=== PATIENT | male | born 1960 | race Caucasian/White ===

== ENCOUNTER 2017-07-07 11:59 | Inpatient (IN) | payer MEDICARE, OTHER ==
[~2017-07-07] VITALS: Ht 175.3 cm; Wt 88.5 kg
[2017-07-07] VITALS (31 sets, daily range): BP systolic 59–144; BP diastolic 36–90
--- NOTE | 2017-07-07 12:05 | NUR ---
PATIENT BIB RA D/T AMS, POSSIBLE DRUG OD.. PATIENT IS A/OX 1. BREATHING EVEN, SLIGHTLY LABORED. BP WNL. O2 SATURATION RUNNING LOW IN THE 80'S. NON REBREATHER APPLIED. IV INTACT ON LEFT HAND, 20 G. SAFETY AND COMFORT MEASURES IN PLACE. AWAITING MD ORDERS.
[2017-07-07] MEDS ORDERED: IV NS 0.9% 1,000 ML BAG IV ONE ×2 (12:30→14:00)
--- NOTE | 2017-07-07 12:30 | NUR ---
UNABLE TO PERFORM NIHSS, PATIENT DROWSY AND NOT FOLLOWING DIRECTIONS.
--- NOTE | 2017-07-07 13:00 | NUR ---
PATIENT TAKEN TO CT VIA STRETCHER
[2017-07-07 13:27] LABS: EOSINOPHILS # (AUTO) 0.1 /CMM (0.0-0.7); EOSINOPHILS % (AUTO) 0.6 % (0.0-6.0); HEMATOCRIT 41 % (39-51); HEMOGLOBIN 13.9 g/dL (13.5-17.5); LYMPHOCYTES # (AUTO) 1.1 /CMM (0.8-4.8); LYMPHOCYTES % (AUTO) 6.8 % (20.0-44.0); MEAN CORPUSCULAR HEMOGLOBIN 30 PG (26.0-33.0); MEAN CORPUSCULAR HGB CONC 34 g/dl (31.0-36.0); MEAN CORPUSCULAR VOLUME 90 fL (80-96); MONOCYTES # (AUTO) 1.4 /CMM (0.1-1.30); MONOCYTES % (AUTO) 8.4 % (2.0-12.0); NEUTROPHILS # (AUTO) 12.9 /CMM (1.8-8.9); NEUTROPHILS % (AUTO) 78.2 % (43.0-81.0); PLATELET COUNT (AUTO) 238 /CMM (150-450); RDW COEFFICIENT OF VARIATION 13.4 (11.5-15.0); RED BLOOD CELL COUNT(AUTO) 4.59 MIL/uL (4.5-6.0); WHITE BLOOD COUNT (AUTO) 16.5 K/uL (4.3-11.0)
[2017-07-07 13:57] LABS: CALCIUM, SERUM 8.3 mg/dL (8.5-10.1); CREATININE 5.7 mg/dL (0.6-1.3); POTASSIUM 5.8 mmol/L (3.5-5.1)
[2017-07-07] MEDS ORDERED: CEFTRIAXONE 1GM BAG (ER ONLY) 50 ML IV ONE (14:00)
[2017-07-07] MEDS ORDERED: LEVOFLOXACIN 750 MG /D5W 150ML 150 ML IV ONE ×2 (14:00→14:30)
[2017-07-07] MEDS ORDERED: ALBUTEROL FS 2.5 MG/3 ML VIAL.NEB CONTNEB ONE (14:00)
[2017-07-07 14:01] LABS: ACETAMINOPHEN 0 ug/ml (10-30); ALCOHOL, BLOOD < 3 mg/dL (0-0); SALICYLATE 3.1 mg/dL (2.8-20.0)
[2017-07-07] MEDS ORDERED: CEFTRIAXONE 1 G VIAL ONE (14:04)
[2017-07-07 14:10] LABS: BAND % (MANUAL) 2 % (0.0-5.0); LYMPHOCYTES % (MANUAL) 7 % (16-48); MONOCYTES % (MANUAL) 5 % (0-11.0); NEUTROPHILS % (MANUAL) 86 (42-76)
--- NOTE | 2017-07-07 14:28 | NUR ---
PAGED COMMERCIAL LOAN ADMINISTRATOR FOR [facility] NEPHROLOGY FOR CONSULT
[2017-07-07] MEDS ORDERED: SODIUM POLYSTYRENE SULFONATE 15 G/60 ML BOTTLE PO ONE (14:30)
[2017-07-07] MEDS ORDERED: ALBUTEROL FS 2.5 MG/3 ML VIAL.NEB ONE (14:41)
--- NOTE | 2017-07-07 14:48 | NUR ---
PER MD ORDERS, 16 FR caruso catheter inserted per sterile protocOl. Immediate output 125 ML of urine, color yellow and clear
[2017-07-07] MEDS ORDERED: SODIUM POLYSTYRENE SULFONATE 15 G/60 ML BOTTLE ONE (15:07)
[2017-07-07 15:25] LABS: APPEARANCE,URINE SL CLOUDY (CLEAR); BILIRUBIN,URINE NEGATIVE (NEGATIVE); BLOOD, URINE 3+ Ery/uL (NEGATIVE); COLOR,URINE YELLOW (YELLOW); KETONES,URINE NEGATIVE (NEGATIVE); LEUKOCYTE ESTERASE ,URINE NEGATIVE (NEGATIVE); NITRITE, URINE NEGATIVE (NEGATIVE); PH,URINE 5.5 (5.0-8.0); PROTEIN,URINE TRACE mg/dl (NEGATIVE); UGLUCOSE NEGATIVE (NEGATIVE); UROBILINOGEN,URINE 0.2 EU/dL (0.2)
[2017-07-07 15:43] LABS: CREATININE, URINE 180.7 MG/DL (30.0-125.0)
--- NOTE | 2017-07-07 16:05 | NUR ---
EKG COMPLETED AT BEDSIDE.
--- NOTE | 2017-07-07 16:10 | NUR ---
PATIENT TRANSPORTED TO ICU 257 VIA ACLS PROTOCOL. RNALBER TO PROVIDE OSMANY.
--- NOTE | 2017-07-07 16:10 | NUR ---
REPORT GIVEN TO CAM CAMPO FOR OSMANY UPON ADMISSION
[2017-07-07 16:23] LABS: BACTERIA,URINE Moderate /HPF (None Seen); SQUAMOUS EPITHELIAL CELL,UR Moderate /HPF (None Seen)
[2017-07-07 16:25] LABS: HYALINE CASTS, URINE Rare /LPF (None Seen)
--- NOTE | 2017-07-07 16:25 | NUR ---
ICU/RN: Pt received from ER via gurney on non-rebreather, O2 sat 100%, alert to self, restless, poor concentration, delayed speech, cooperative, no s/s pain or discomfort. Skin appears flushed, pink, warm to touch. Unable to assess pt history as pt is unable to fully answer questions and requires frequent orientation. Pt c/o feeling urge to pass stool s/p kayexelate administration in ER per EMR record. Pt educated on fall precautions. FC in place, draining well to gravity. SR on monitor. Dr Vallejo paged for admitting orders.
[2017-07-07 16:28] LABS: CALCIUM OXALATE CRYSTALS,UR Few /HPF (None Seen)
[2017-07-07] MEDS ORDERED: CEFTRIAXONE 1GM BAG (ER ONLY) 1 GM/50 ML PIGGYBACK IV ONE (17:00)
[2017-07-07] MEDS ORDERED: ZOLPIDEM TARTRATE 5 MG TABLET PO PRN (17:00)
[2017-07-07] MEDS ORDERED: MAG HYDROX/AL HYDROX/SIMETH 30 ML UDC PO PRN (17:00)
[2017-07-07] MEDS ORDERED: MAGNESIUM HYDROXIDE 30 ML UDC PO PRN (17:00)
[2017-07-07] MEDS ORDERED: ONDANSETRON HCL/PF 4 MG/2 ML VIAL IVP PRN (17:00)
[2017-07-07] MEDS ORDERED: Z GUARD REMEDY 2 OZ OINT TP PRN (17:00)
[2017-07-07] MEDS ORDERED: HYDROCODONE/APAP 5/325MG 1 EACH TABLET PO PRN (17:00)
--- NOTE | 2017-07-07 17:30 | NUR ---
ICU/RN: Dr Cortes at bedside. Updated on pt status. New orders noted and carried out.
[2017-07-07] MEDS: IV NS 0.9% 1,000 ML IV PRN (17:31)
[2017-07-07 17:34] LABS: ABG BASE EXCESS -9.4 mmol/L; ABG PCO2 62.9 mmHg (35.0-45.0); ABG PH 7.132 (7.350-7.450); ABG PO2 70.8 mmHg (75.0-100.0); AaDO2 120.2 mmHg; COHb 1.1 % (0.5-1.5); MetHb 0.6 % (0.0-1.5); O2Hb 91.4 % (94.0-97.0); SITE, ABG Right Brachial; VENT MODE, BG nasal cannula
--- NOTE | 2017-07-07 17:45 | NUR ---
ICU/RN: Notified Dr Cortes of ABG results with orders to place pt on BiPAP 18/5, repeat ABG after 2 hours and to call MD if pH<7.25. senior climate advisor updated.
--- NOTE | 2017-07-07 18:09 | NUR ---
ICU/RN: Dr Vallejo at bedside. Updated on ABG, Dr Cortes's orders, as well as DVT Risk score >5. Per MD, "I'll take a look at the chart."
--- NOTE | 2017-07-07 18:18 | NUR ---
PT PLACED ON BIPAP DUE TO PH 7.13, PCO2 62, PO2 70, HCO3 20, BE -9 BIPAP SETTINGS BELLOW ORDER: [id number] EPAP 5 BIPAP MACHINE PLUGGED INTO RED OUTLET WITH ALARM ON AND AUDIBLE. Addendum: 07/07/17 at 1822 by FAROOQ MAYO RT Amended: Links added.
[2017-07-07 18:36] LABS: ALBUMIN 2.9 g/dL (3.4-5.0); BILIRUBIN,DIRECT 0.2 mg/dL (0.0-0.2); BILIRUBIN,TOTAL 0.4 mg/dL (0.2-1.0); TOTAL PROTEIN, SERUM 6.6 g/dL (6.4-8.2)
--- NOTE | 2017-07-07 18:58 | NUR ---
ICU/RN: Spoke with Kalia, son. Given updates. Father wishes to be full code. Per son, father drinks occasionally, uses CPAP at night. Does not know any other medical history. Questions answered. Son to come in AM to visit pt.
--- NOTE | 2017-07-07 19:01 | NUR ---
ICU/RN: KATHE Cook rounds. In for ID consult. Updated on pt status.
--- NOTE | 2017-07-07 19:30 | NUR ---
CLOTHING MANAGER NOTES RECEIVED PT IN BED. ALERT, DROWSY AND LETHARGIC. ON BIPAP AT ORDERED SETTINGS. O2 SATING >95%. TELE READS SR AT 88 BPM. NPO AT THIS TIME. GALICIA CATH IN PLACE DRAINING WELL. IV SITES AT LH 20G AND LAC 20G, RUNNING NS AT 75 ML/HR. BILATERAL SWR FOR PATIENT SAFETY DUE TO PULLING ON BIPAP MASK. HOB ELEVATED, SIDE RAILS X3. CALL LIGHT WITHIN REACH.
--- NOTE | 2017-07-07 19:51 | NUR ---
PT RECEIVED ON BIPAP. NO DISTRESS. PT TOLERATING SETTINGS. WILL CONTINUE TO MONITOR. Addendum: 07/07/17 at 1950 by WILLIAM MCDOWELL RT Amended: Links added.
[2017-07-07] MEDS ORDERED: IV NS 0.9% 1,000 ML IV ONE (20:00)
--- NOTE | 2017-07-07 20:00 | NUR ---
DOUGH MOLDER HAND NOTES PT NOTED WITH SBP IN LOW 80s. DR HERNANDEZ PAGED AND MADE AWARE. NEW ORDERS RECEIVED FOR LABS AND 1L NS BOLUS.
[2017-07-07 20:28] LABS: ABG BASE EXCESS -9.9 mmol/L; ABG OXYGEN SATURATION 96.4 % (92.0-98.5); ABG PCO2 65.8 mmHg (35.0-45.0); ABG PO2 102.1 mmHg (75.0-100.0); AaDO2 143.9 mmHg; MetHb 0.7 % (0.0-1.5); O2Hb 94.8 % (94.0-97.0); SITE, ABG Right Radial
--- NOTE | 2017-07-07 20:32 | NUR ---
ABG DONE ON BIPAP. RN NOTIFIED WITH THE RESULT.
[2017-07-07 20:36] LABS: CREATINE KINASE MB 169.3 ng/mL (0-3.6)
[2017-07-07] MEDS ORDERED: ENOXAPARIN SODIUM 30 MG/0.3 ML DISP.SYRIN SQ SCH (21:00)
--- NOTE | 2017-07-07 21:00 | NUR ---
AMMUNITION COMPONENTS INSPECTOR NOTES DR AYALA PAGED FOR ABG RESULTS. DR BECKFORD TIRE STRIPPER. MADE AWARE OF ABG RESULTS NOT IMPROVING ON BIPAP. NEW ORDERS RECEIVED TO INTUBATE, SEDATED WITH VERSED AND LEVOPHED FOR BP SUPPORT.
[2017-07-07] MEDS ORDERED: NOREPINEPHRINE 4 MG/4 ML AMPUL IV ONE ×2 (21:05→21:06)
[2017-07-07] MEDS: NOREPINEPHRINE 8 MG in IV D5W 500 ML IV PRN (21:12)
[2017-07-07] MEDS ORDERED: IV NS 0.9% 500 ML IV ONE (21:30)
--- NOTE | 2017-07-07 21:30 | NUR ---
MUSIC HISTORIAN NOTES PT ALERT ENOUGH TO BE MADE AWARE OF NEED FOR INTUBATION AND AGREED. PT'S SON CALLED AND MADE AWARE ALSO. PT WAS INTUBATED BY DR JERNIGAN. ETT 7.5, 24 CM AT LIP. AC 16 TV 500 FIO2 50% PEEP 0.
[2017-07-07] MEDS ORDERED: MIDAZOLAM HCL 2 MG/2ML VIAL ONE ×2 (21:39→21:50)
--- NOTE | 2017-07-07 21:39 | NUR ---
@[address] BECKFORD. PT INTUBATED BY DR JERNIGAN, 7.5 ETT SECURED AT 24CM AT THE LIP. COLOR CHANGED ON CO2 DETECTOR. EQUAL CHEST RISE. PT PLACED ON 840 VENT. ALARMS SET AND AUDIBLE. AMBU BAG AT BEDSIDE. VENT PLUGGED INTO RED OUTLET. WILL CONTINUE TO MONITOR. Addendum: 07/07/17 at 2142 by WILLIAM MCDOWELL RT Amended: Links added.
[2017-07-07] MEDS: MIDAZOLAM HCL 100 MG in IV NS 0.9% 80 ML IV PRN (22:43)
--- NOTE | 2017-07-07 22:44 | NUR ---
RN:ICU: PT TO BE STARTED ON VERSED D/T TRANSAMINITIS. NOT ENOUGH VERSED STOCKED IN ICU OR ER OMNICELL TO MAKE SUGGESTED CONCENTRATION LISTED IN EMAR (VERSED 100MG/80ML OF NS). NOTIFIED BK AIR BOX TESTER REGARDING DIFFICULTY WITH MIXING MEDICATION AND SHORTAGE OF NEEDED VIALS. NURSING SUP SUGGESTED TO MAKE A GTT WITH LESS VIALS THAT STILL REMAINS 1:1. HARDWARE TECHNICIAN PHARMACY NOTIFIED TO ENSURE ACCURACY OF MIXING DRIP. SPOKE WITH CARLTON FROM PHARMACY IN ORDER TO MIX CORRECT CONCENTRATION OF VERSED 34MG/34ML 1:1 RATIO. PER PHARMACIST REMOVE ENTIRE CONTENT OF NS FROM 50ML NS BAG AND INJECT 34MG/34ML OF VERSED INTO BAG. BAG CONTAINS PURELY VERSED. MEDICATION VERIFIED WITH MANN LEVY. UNABLE TO SCAN MEDICATION THE CONCENTRATION OF THE VIAL DID NOT MATCH EMAR. VERSED GTT STARTED FOR SEDATION FOLLOWING INTUBATION PER MD ORDERS. VERSED STARTED AT 0.5MG/HR. WILL TITRATED PER PROTOCOL.
[2017-07-07] MEDS ORDERED: HEPARIN INFUSION/D5W 500 ML IV ONE (22:55)
--- NOTE | 2017-07-07 23:00 | NUR ---
PATTERN PUNCHER NOTES PT TROPONIN ELEVATED, DR HERNANDEZ PAGED AND MADE AWARE. ALSO MADE AWARE OF PT'S AGITATION WHILE ON VERSED. NEW ORDERS RECEIVED FOR HEPARIN DRIP WITH ACS PROTOCOL AND FENTANYL DRIP.
[2017-07-07] MEDS ORDERED: FENTANYL PF 100MCG/2ML AMPUL ONE ×2 (23:03→23:06)
[2017-07-07] MEDS: FENTANYL CITRATE IV 1,250 MCG in IV NS 0.9% 225 ML IV PRN (23:12)
[2017-07-07 23:19] LABS: INR 0.96 (0.87-1.13)
[2017-07-07] MEDS ORDERED: HEPARIN SODIUM, PORCINE 5000 UNITS/1 ML VIAL ONE (23:34)
[2017-07-07] MEDS: HEPARIN INFUSION/D5W 500 ML IV PRN (23:38)
[2017-07-08] VITALS (83 sets, daily range): BP systolic 85–166; BP diastolic 57–101
[2017-07-08] MEDS ORDERED: HEPARIN SODIUM, PORCINE 5000 UNITS/1 ML VIAL IV ONE
[2017-07-08 00:22] LABS: ABG BASE EXCESS -7.3 mmol/L; ABG OXYGEN SATURATION 97.1 % (92.0-98.5); ABG PCO2 53.8 mmHg (35.0-45.0); ABG PH 7.209 (7.350-7.450); ABG PO2 98.3 mmHg (75.0-100.0); AaDO2 415.6 mmHg; COHb 0.9 % (0.5-1.5); MetHb 0.3 % (0.0-1.5); O2Hb 95.9 % (94.0-97.0); PEEP,BG 5 cm H2O; SITE, ABG Left Radial; VT, ABG 500 mL
--- NOTE | 2017-07-08 00:26 | NUR ---
ABG DONE. RN NOTIFIED WITH THE RESULT.
[2017-07-08] MEDS: IV NS 0.9% 1,000 ML IV PRN ×2 (02:35→18:06)
[2017-07-08 04:38] LABS: BASOPHILS % (AUTO) 0.1 % (0.0-2.0); HEMATOCRIT 40 % (39-51); HEMOGLOBIN 13.4 g/dL (13.5-17.5); LYMPHOCYTES # (AUTO) 1.5 /CMM (0.8-4.8); LYMPHOCYTES % (AUTO) 9.8 % (20.0-44.0); MEAN CORPUSCULAR HEMOGLOBIN 30 PG (26.0-33.0); MEAN CORPUSCULAR HGB CONC 34 g/dl (31.0-36.0); MEAN CORPUSCULAR VOLUME 90 fL (80-96); MONOCYTES # (AUTO) 1.3 /CMM (0.1-1.30); MONOCYTES % (AUTO) 8.4 % (2.0-12.0); NEUTROPHILS # (AUTO) 12.8 /CMM (1.8-8.9); NEUTROPHILS % (AUTO) 81.7 % (43.0-81.0); PLATELET COUNT (AUTO) 204 /CMM (150-450); RDW COEFFICIENT OF VARIATION 14.1 (11.5-15.0); RED BLOOD CELL COUNT(AUTO) 4.44 MIL/uL (4.5-6.0); WHITE BLOOD COUNT (AUTO) 15.7 K/uL (4.3-11.0)
[2017-07-08 05:06] LABS: ALBUMIN 2.5 g/dL (3.4-5.0); BILIRUBIN,TOTAL 0.3 mg/dL (0.2-1.0); CALCIUM, SERUM 7.9 mg/dL (8.5-10.1); CREATININE 2.9 mg/dL (0.6-1.3); MAGNESIUM 2.3 mg/dL (1.8-2.4); PHOSPHORUS 4.3 mg/dL (2.5-4.9); POTASSIUM 4.8 mmol/L (3.5-5.1); TOTAL PROTEIN, SERUM 6.3 g/dL (6.4-8.2)
[2017-07-08 05:15] LABS: TROPONIN I 3.86 ng/mL (0.00-0.056)
[2017-07-08 05:22] LABS: CREATINE KINASE MB 117.6 ng/mL (0-3.6)
--- NOTE | 2017-07-08 06:00 | NUR ---
HAY STACKER OPERATOR NOTES PAGED DR HERNANDEZ REGARDING LABS: NA 146, TROP 3.860 AND PICC INSERTION. ORDER RECEIVED FOR PICC.
[2017-07-08] MEDS ORDERED: ROCURONIUM BROMIDE 50 MG/5 ML IV ONE (08:02)
[2017-07-08] MEDS ORDERED: ETOMIDATE 2 MG/ML VIAL IV ONE (08:02)
[2017-07-08] MEDS ORDERED: FEE EMEERGENCY 1 MIN EA MC ONE (08:02)
[2017-07-08] MEDS ORDERED: IV NS 0.9% 1,000 ML BAG IV SCH (09:00)
--- NOTE | 2017-07-08 09:15 | NUR ---
DR. AYALA ON THE UNIT SHOWED HIM THE NEWEST ABG LACTIC AT 7.28, HE ORDERS TO INCREASE TIDAL VOLUME TO 550. RT NOTIFIED ORDERS PLACED.
[2017-07-08 09:30] LABS: ABG BASE EXCESS -5.8 mmol/L; ABG OXYGEN SATURATION 95.9 % (92.0-98.5); ABG PCO2 44.4 mmHg (35.0-45.0); ABG PH 7.286 (7.350-7.450); ABG PO2 81.9 mmHg (75.0-100.0); AaDO2 224.7 mmHg; COHb 0.6 % (0.5-1.5); MetHb 0.2 % (0.0-1.5); O2Hb 95.1 % (94.0-97.0); SITE, ABG Right Radial; VENT MODE, BG AC 16 500 50% +5
[2017-07-08] MEDS: MIDAZOLAM HCL 100 MG in IV NS 0.9% 80 ML IV PRN (09:42)
[2017-07-08] MEDS: ASPIRIN 81 MG TAB.CHEW NG SCH (10:01)
[2017-07-08] MEDS: FENTANYL CITRATE IV 1,250 MCG in IV NS 0.9% 225 ML IV PRN (11:32)
[2017-07-08] MEDS: ALBUTEROL HALF STRENGTH 1.25 MG/3 ML VIAL.NEB NEB SCH ×5 (13:00→23:14)
[2017-07-08] MEDS: IPRATROPIUM NEB FS 0.5 MG/2.5 ML AMPUL.NEB NEB SCH ×4 (13:46→23:14)
[2017-07-08] MEDS: ACETYLCYSTEINE 10% SOLN 400 MG/4 ML VIAL NEB SCH ×3 (13:46→23:14)
--- NOTE | 2017-07-08 14:32 | NUR ---
PT HAS EPISODE OF AGITATION, THRASHING ABOUT. SLOWLY TITRATED UP THE VERSED AND FENTANYL TO TRY AND SEDATE THE PT BUT AT MAX HE REMAINED THRASHING ABOUT AND WOULD NOT FOLLOW DIRECTIONS. CHARGE NURSE AND ANOTHER NURSE AT BEDSIDE FOR ASSISTANCE IN KEEP THE PT SAFE, HE PULLED OUT THE PERIPHERAL IVs, PICC LINE WAS PROTECTED. DR. AYALA NOTIFIED AND HE CALLS BACK STATES HE LOOKS OVER THE LIVER BLOOD TESTS AND IT IS OKAY TO START DIPRIVAN. ORDERS TO DC TITRATE THE PT OFF THE FENTANYL AND VERSED AND START DIPRIVAN.
[2017-07-08] MEDS: PROPOFOL 100 ML IV PRN ×2 (14:41→22:30)
[2017-07-08] MEDS: CEFTRIAXONE 1 G in IV D5W 50 ML IV SCH (14:49)
[2017-07-08] MEDS: NOREPINEPHRINE 8 MG in IV D5W 500 ML IV PRN (14:53)
[2017-07-08] MEDS: HEPARIN INFUSION/D5W 500 ML IV PRN (14:56)
[2017-07-08] MEDS: ACETAMINOPHEN 325 MG TABLET PO PRN (17:08)
--- NOTE | 2017-07-08 18:04 | NUR ---
2LITERS BOLUS AT 200ML/H COMPLETE IVF FLUIDS CHANGED BACK TO NS AT 125ML/H.
--- NOTE | 2017-07-08 20:00 | NUR ---
HOME THEATER SPECIALIST - NOTES - PT RECEIVED IN BED, INTUBATED WIT 7.5 ETT 24 CM AT LIP, VENT SETTINGS AC 16 550 50% PEEP 5.0. PT IS SEDATED ON PROPOFOL @ 15 MCG/KG, PT IS ON BILAT SOFT WRIST RESTRAINTS. PT IS ALERT AND ABLE TO FOLLOW COMMANDS WHEN AWAKE. PT IS IN SR, WITH LEVO @ 2 MCG, BP WNL, ON HEPARIN DRIP AT 1200 UNITS/HR. PT HAS OGT CLAMPED NPO EXCEPT MEDS. F/C INTACT, ADEQUATE URINE OUTPUT. SKIN IS INTACT. PT HAS AMARILIS PICC LINE WITH NS @ 125 ML/HR
--- NOTE | 2017-07-08 21:30 | NUR ---
PT AWAKE, AGITATED COUGHING AND TRYING TO PULL OUT ETT, PROPOFOL DRIP INCREASED FOR SEDATION
--- NOTE | 2017-07-08 22:00 | NUR ---
BP WNL, LEVO OFF
[2017-07-09] VITALS (60 sets, daily range): BP systolic 103–165; BP diastolic 66–108
[2017-07-09] MEDS: PROPOFOL 100 ML IV PRN ×7 (02:29→22:57)
[2017-07-09] MEDS: IV NS 0.9% 1,000 ML IV PRN ×3 (02:29→17:46)
[2017-07-09] MEDS: ALBUTEROL HALF STRENGTH 1.25 MG/3 ML VIAL.NEB NEB SCH ×5 (03:21→23:49)
[2017-07-09] MEDS: IPRATROPIUM NEB FS 0.5 MG/2.5 ML AMPUL.NEB NEB SCH ×5 (03:21→23:49)
[2017-07-09 04:34] LABS: BASOPHILS % (AUTO) 0.1 % (0.0-2.0); EOSINOPHILS % (AUTO) 0.4 % (0.0-6.0); HEMATOCRIT 35 % (39-51); HEMOGLOBIN 11.9 g/dL (13.5-17.5); LYMPHOCYTES # (AUTO) 1.7 /CMM (0.8-4.8); LYMPHOCYTES % (AUTO) 13.6 % (20.0-44.0); MEAN CORPUSCULAR HEMOGLOBIN 30 PG (26.0-33.0); MEAN CORPUSCULAR HGB CONC 34 g/dl (31.0-36.0); MEAN CORPUSCULAR VOLUME 90 fL (80-96); MONOCYTES # (AUTO) 0.9 /CMM (0.1-1.30); MONOCYTES % (AUTO) 7.2 % (2.0-12.0); NEUTROPHILS # (AUTO) 9.7 /CMM (1.8-8.9); NEUTROPHILS % (AUTO) 78.7 % (43.0-81.0); PLATELET COUNT (AUTO) 190 /CMM (150-450); RDW COEFFICIENT OF VARIATION 13.5 (11.5-15.0); RED BLOOD CELL COUNT(AUTO) 3.94 MIL/uL (4.5-6.0); WHITE BLOOD COUNT (AUTO) 12.4 K/uL (4.3-11.0)
[2017-07-09 04:51] LABS: CREATININE 1.3 mg/dL (0.6-1.3); POTASSIUM 3.8 mmol/L (3.5-5.1)
[2017-07-09] MEDS ORDERED: NITROGLYCERIN PACKET 1 GM PACKET ONE (06:30)
[2017-07-09] MEDS ORDERED: HEPARIN SODIUM, PORCINE 5000 UNITS/1 ML VIAL ONE (06:30)
[2017-07-09] MEDS ORDERED: HEPARIN SODIUM, PORCINE 5000 UNITS/1 ML VIAL IV ONE ×2 (06:30→14:00)
[2017-07-09] MEDS ORDERED: CARVEDILOL 3.125 MG TABLET ONE (06:30)
[2017-07-09] MEDS ORDERED: HEPARIN SODIUM,PORCINE/PF 50 UNIT/5 ML DISP.SYRIN IV ONE (06:30)
[2017-07-09] MEDS: CARVEDILOL 3.125 MG TABLET NG SCH ×3 (06:32→20:15)
[2017-07-09] MEDS: NITROGLYCERIN 30 GM TUBE TP SCH ×3 (06:36→20:15)
--- NOTE | 2017-07-09 06:47 | NUR ---
HEPARIN DRIP INCREASED BY 200 UNITS TO 1400 UNITS PER HOUR AND 2500 UNIT BOLUS GIVEN PER DR US ORDER FOR PTT 36 L
--- NOTE | 2017-07-09 07:45 | NUR ---
ICU/RN - Notes Pt received sedated, orally intubated to mechanical ventilator with settings as ordered. No s/s of pain or discomfort. On tele reading SR 66. OG tube patent and intact, clamped, as pt is NPO at this time. Hernandez catheter intact draining urine to gravity. PICC line on AMARILIS patent and intact with IVF infusing well. On Heparin gtt, titrated accordingly. Safety and comfort measures in place. Will continue to monitor pt closely.
[2017-07-09] MEDS: ACETYLCYSTEINE 10% SOLN 400 MG/4 ML VIAL NEB SCH ×3 (08:23→23:49)
--- NOTE | 2017-07-09 08:35 | NUR ---
ICU/RN - Notes Coreg and Nitrol held at this time. Medication given prior at 0636 by PM nurse.
[2017-07-09] MEDS: ASPIRIN 81 MG TAB.CHEW NG SCH (08:36)
[2017-07-09 09:12] LABS: CREATINE KINASE MB 19.3 ng/mL (0-3.6)
[2017-07-09 09:15] LABS: ABG OXYGEN SATURATION 96.5 % (92.0-98.5); ABG PCO2 40.5 mmHg (35.0-45.0); ABG PH 7.389 (7.350-7.450); ABG PO2 88.4 mmHg (75.0-100.0); AaDO2 114.1 mmHg; MetHb 0.6 % (0.0-1.5); O2Hb 95.9 % (94.0-97.0); PEEP,BG 5 cm H2O; SITE, ABG Right Radial; VT, ABG 550 mL
--- NOTE | 2017-07-09 09:41 | NUR ---
ICU/RN - Sedation Vacation Diprivan gtt turned off at 0905 for sedation vacation and to assess neurological status. At this time, pt opens eyes, thrashing and kicking, attempting to reach for ETT tube, does not follow commands, does not move extremities purposefully. Dr Cortes at bedside for evaluation. Per MD, place pt back on sedation.
[2017-07-09] MEDS: HEPARIN INFUSION/D5W 500 ML IV PRN (10:39)
[2017-07-09] MEDS: CEFTRIAXONE 1 G in IV D5W 50 ML IV SCH (13:22)
--- NOTE | 2017-07-09 15:15 | NUR ---
ICU/RN - Notes Pt still agitated and restless, thrashing legs and biting down on ETT, on Diprivan @ 50 mcg/kg/min. Dr Cortes made aware with orders received to may increase rate up to 100 mcg/kg/min.
--- NOTE | 2017-07-09 17:52 | NUR ---
ICU/RN - Notes Dr Fabio Ferreira made aware that pt's PTT level consecutively subtherapeutic despite bolus and increase in Heparin gtt rate as per protocol. Per Dr, recheck PTT level now. Stat PTT ordered.
--- NOTE | 2017-07-09 18:59 | NUR ---
ICU/RN - Notes PTT 55, within therapeutic range. PTT ordered for tomorrow 07/10/17 @ 1400.
--- NOTE | 2017-07-09 20:27 | NUR ---
FRIT COATER DF MEDICATED PT WITH 1 TAB NORCO 5/325 PT WITH HX OF CHRONIC LOW BACK ON PERCOCET AT HOME. PT INTUBATED TOLERATING CURRENT SETTINGS VSS.SEDATED ON PROPOFOL AT 60MCG/MIN. NSR ON MONITOR BP OF 146/90 PT MEDICATED WITH COREG 3.125 AND 1 INCH NITRO PASTE. PT OGT CLAMPED. PLACEMENT VERIFIED VIA AUSCULATION/PCXR. NAD NOTED. VSS.
--- NOTE | 2017-07-09 20:59 | NUR ---
HEDDLE MACHINE OPERATOR DF PT RECEIVED ON HEPARIN GTT AT 1700 UNITS HOUR LAST PTT RESULTED AROUND 1800 VALUE OF 55 NO CHANGES PER ACS/AMI HEPARIN PROTOCOL. DOSE CALCULATIONS BASED ON PT,S WEIGHT OF 97 KG. NEXT PTT July @0500.
[2017-07-10] VITALS (38 sets, daily range): BP systolic 124–171; BP diastolic 75–107
[2017-07-10] MEDS: PROPOFOL 100 ML IV PRN ×8 (00:30→21:50)
[2017-07-10] MEDS: IV NS 0.9% 1,000 ML IV PRN (01:59)
[2017-07-10] MEDS: HEPARIN INFUSION/D5W 500 ML IV PRN (02:43)
[2017-07-10] MEDS: IPRATROPIUM NEB FS 0.5 MG/2.5 ML AMPUL.NEB NEB SCH ×6 (03:35→23:16)
[2017-07-10] MEDS: ALBUTEROL HALF STRENGTH 1.25 MG/3 ML VIAL.NEB NEB SCH ×6 (03:35→23:16)
[2017-07-10 05:15] LABS: BASOPHILS % (AUTO) 0.2 % (0.0-2.0); EOSINOPHILS # (AUTO) 0.1 /CMM (0.0-0.7); EOSINOPHILS % (AUTO) 0.8 % (0.0-6.0); HEMATOCRIT 36 % (39-51); LYMPHOCYTES % (AUTO) 17.2 % (20.0-44.0); MEAN CORPUSCULAR HEMOGLOBIN 30 PG (26.0-33.0); MEAN CORPUSCULAR HGB CONC 34 g/dl (31.0-36.0); MEAN CORPUSCULAR VOLUME 90 fL (80-96); MONOCYTES # (AUTO) 0.8 /CMM (0.1-1.30); MONOCYTES % (AUTO) 6.9 % (2.0-12.0); NEUTROPHILS # (AUTO) 8.7 /CMM (1.8-8.9); NEUTROPHILS % (AUTO) 74.9 % (43.0-81.0); PLATELET COUNT (AUTO) 202 /CMM (150-450); RDW COEFFICIENT OF VARIATION 14.1 (11.5-15.0); RED BLOOD CELL COUNT(AUTO) 3.96 MIL/uL (4.5-6.0); WHITE BLOOD COUNT (AUTO) 11.6 K/uL (4.3-11.0)
[2017-07-10 05:25] LABS: ALBUMIN 2.1 g/dL (3.4-5.0); BILIRUBIN,TOTAL 0.3 mg/dL (0.2-1.0); CALCIUM, SERUM 8.2 mg/dL (8.5-10.1); CREATININE 1.1 mg/dL (0.6-1.3); MAGNESIUM 2.3 mg/dL (1.8-2.4); PHOSPHORUS 2.1 mg/dL (2.5-4.9); POTASSIUM 3.5 mmol/L (3.5-5.1); TOTAL PROTEIN, SERUM 5.8 g/dL (6.4-8.2)
[2017-07-10 05:30] LABS: TROPONIN I 0.462 ng/mL (0.00-0.056)
--- NOTE | 2017-07-10 06:23 | NUR ---
MENTAL HYGIENE CONSULTANT DF MD US CARDIO AT BEDSIDE TO SEE PT. ORDERS TO STOP HEPARIN GTT. ADDITIONAL ORDERS ACKNOWLEDGED.
[2017-07-10] MEDS ORDERED: hydrALAZINE HCL 50 MG TABLET PO SCH ×2 (06:30→09:00)
[2017-07-10] MEDS ORDERED: hydrALAZINE HCL 50 MG TABLET ONE (06:34)
--- NOTE | 2017-07-10 06:38 | NUR ---
HOT BRAIDER DF PT DIPRIVAN GTT DECREASED TO 40MCG. PT SEDATED BRADYCARDIC AT 55-61BPM. HYDRALAZINE 5O MG PO GIVEN PER ORDERS. Addendum: 07/10/17 at 0647 by NORMAN ARRIAGA RN DIPRIVAN GTT PLACED TO 50MCG PT WITH FACIAL GRIMACING,BITING ETT AT 40MCG. SIMV WEAN TRIAL IN AM. HEPARIN GTT IVF D/C PER MD US
--- NOTE | 2017-07-10 07:45 | NUR ---
ICU/RN - Notes Pt received restless, kicking legs. Sedation titrated accordingly. Orally intubated to mechanical ventilator with settings as ordered. No s/s of pain. On tele reading SR 64. OG tube patent and intact, clamped, as pt is NPO at this time. Hernandez catheter intact draining urine to gravity. PICC line on AMARILIS patent and intact. Safety and comfort measures in place. Will continue to monitor pt closely.
[2017-07-10] MEDS: ACETYLCYSTEINE 10% SOLN 400 MG/4 ML VIAL NEB SCH ×3 (08:16→23:16)
[2017-07-10] MEDS: CARVEDILOL 3.125 MG TABLET NG SCH ×2 (08:22→21:53)
[2017-07-10] MEDS: ASPIRIN 81 MG TAB.CHEW NG SCH (08:23)
[2017-07-10] MEDS: HEPARIN SODIUM, PORCINE 5000 UNITS/1 ML VIAL SQ SCH ×2 (08:24→21:51)
[2017-07-10] MEDS: NITROGLYCERIN 30 GM TUBE TP SCH ×2 (08:25→21:53)
--- NOTE | 2017-07-10 12:00 | NUR ---
ICU/RN - Sedation Vacation Diprivan turned off at [address] vacation per Dr Cortes's request. At this time, pt opens eyes but unable to follow commands, unable to move all four extremities purposefully, appears in respiratory distress with tachypnea RR 30's. Per MD, abort SIMV wean trial and place pt back on sedation as pt is not ready for weaning today.
[2017-07-10] MEDS ORDERED: NEUTRA PHOS 1 POWD.PACKET NG ONE (12:30)
[2017-07-10] MEDS: hydrALAZINE HCL 50 MG TABLET PO SCH ×2 (12:44→16:28)
[2017-07-10] MEDS: CEFTRIAXONE 1 G in IV D5W 50 ML IV SCH (13:14)
[2017-07-10] MEDS: FIBERSOURCE HN 1,000 ML BOTTLE GT PRN (13:14)
[2017-07-10] MEDS: LORAZEPAM INJ 2 MG/ML VIAL IV PRN (18:04)
--- NOTE | 2017-07-10 18:05 | NUR ---
ICU/RN - Notes Pt restless and thrashing legs despite increase in Diprivan. Notified Dr Fabio Ferreira and received order for Ativan. Administered Ativan 2mg IVP as ordered PRN restlessness. Will continue to monitor pt closely.
--- NOTE | 2017-07-10 19:30 | NUR ---
SUPPLIER RELATIONSHIP DIRECTOR: RECEIVED INTUBATED PT WT VENT SETTINGS ORDERED. NO ACUTE DISTRESS. NO EVIDENCE OF DISCOMFORT. SEDATED ON DIPRIVAN DRIP AT 60MCG/KG/MIN. BILAT. SOFT WRIST RESTRAINTS IN PLACE FOR EPISODES OF TRYING TO REACH TUBINGS DESPITE BEING ON DIPRIVAN. RADIAL PULSES NOTED AND WNL WT NO NEW SKIN BREAKDOWN. SR ON MONITOR. AFEBRILE. OGT PLACEMENT VERIFIED AND TOLERATING FIBERSOURCE AT 55ML/HR WT NO RESIDUAL. AMARILIS PICC DRESSING C/D/I WT NO S/S OF COMPLICATIONS. F/C PATENT AND INTACT DRAINING YELLOW URINE TO GRAVITY. HOB AT 35 DEGREES. SAFETY PRECAUTION NOTED. WILL CONTINUE TO MONITOR.
--- NOTE | 2017-07-10 21:39 | NUR ---
PT RECEIVED INTUBATED 7.5 ETT AT 24CM AT THE LIP. TOLERATING VENT SETTINGS. SX'D FOR MOD AMT OF THICK YELLOW SECRETIONS. VENT ALARMS SET AND AUDIBLE. AMBU BAG AT BEDSIDE. VENT PLUGGED INTO RED OUTLET. Addendum: 07/10/17 at 2145 by WILLIAM MCDOWELL RT Amended: Links added.
[2017-07-11] VITALS (46 sets, daily range): BP systolic 98–153; BP diastolic 57–103
--- NOTE | 2017-07-11 00:30 | NUR ---
EMERGENCY DEPARTMENT AIDE: REMAINED SEDATED ON DIPRIVAN DRIP AT 60MCG/KG/MIN. SR ON PROCESS CONTROL OPERATOR.
[2017-07-11] MEDS: PROPOFOL 100 ML IV PRN ×8 (00:32→21:53)
[2017-07-11] MEDS: IV NS 0.9% 250 ML IV PRN (03:21)
[2017-07-11] MEDS: ALBUTEROL HALF STRENGTH 1.25 MG/3 ML VIAL.NEB NEB SCH ×6 (03:24→23:50)
[2017-07-11] MEDS: IPRATROPIUM NEB FS 0.5 MG/2.5 ML AMPUL.NEB NEB SCH ×6 (03:24→23:50)
--- NOTE | 2017-07-11 04:00 | NUR ---
DATA RECOVERY PLANNER: NOTED SB WT HR IN THE 50s. WILL DECREASE RATE OF DIPRIVAN TOLERATED.
[2017-07-11 04:46] LABS: CALCIUM, SERUM 8.4 mg/dL (8.5-10.1); CREATININE 0.9 mg/dL (0.6-1.3); PHOSPHORUS 2.5 mg/dL (2.5-4.9); POTASSIUM 3.1 mmol/L (3.5-5.1)
--- NOTE | 2017-07-11 06:20 | NUR ---
WINDSURFING INSTRUCTOR: SB ON LABOR RELATIONS DIRECTOR. CONTINUE ON DIPRIVAN AT 50MCG/KG/MIN. NO ACUTE DISTRESS, NO EVIDENCE OF DISCOMFORT. SAFETY PRECAUTION NOTED AT ALL TIMES.
--- NOTE | 2017-07-11 07:35 | NUR ---
CLASSIFICATION CLERK: pt.is sedated well with 50 mcg/kg/m, rest, no SOB, reactive by touch/pain with grimacing and weak activity, on wrists restraints, failed sedation vacation attempt on 07/10, SR/SB episodes over night 55-60, SBP over 100 below 150, O2 sat. GTF residual WNL, suctioned well, k+ 3.1, is in room, updated with above, see new orders
[2017-07-11] MEDS: ACETYLCYSTEINE 10% SOLN 400 MG/4 ML VIAL NEB SCH ×3 (07:58→23:50)
[2017-07-11] MEDS ORDERED: POTASSIUM CHLORIDE 20 MEQ POWDER PACKET NG SCH (08:00)
[2017-07-11] MEDS: NITROGLYCERIN 30 GM TUBE TP SCH ×2 (08:19→21:07)
[2017-07-11] MEDS: ASPIRIN 81 MG TAB.CHEW NG SCH (08:19)
[2017-07-11] MEDS: hydrALAZINE HCL 50 MG TABLET PO SCH ×3 (08:20→17:00)
[2017-07-11] MEDS: CARVEDILOL 3.125 MG TABLET NG SCH ×2 (08:20→21:06)
[2017-07-11] MEDS: HEPARIN SODIUM, PORCINE 5000 UNITS/1 ML VIAL SQ SCH ×2 (08:22→21:06)
--- NOTE | 2017-07-11 08:51 | NUR ---
CIRCULATION LIBRARIAN: unable to get Lasix, K+ from [facility](last order), pharmacy is working to fix
--- NOTE | 2017-07-11 09:00 | NUR ---
TOLL TRANSMISSION WORKER: updated with pt.status, labs, VS, orders, ordered: hos IV 2 bags
--- NOTE | 2017-07-11 09:40 | NUR ---
PATHOLOGY SECRETARY/TRANSCRIPTIONIST: sedation vacation initiated, pt.was off of sedation around 15 min: was able to open eyes without eyes contact, arms/legs activity+, unable to follow commands, restless with extremities activity, bitting ETT, resumed sedation, will f/u with MD visit for sedation vacation again
[2017-07-11] MEDS: FUROSEMIDE 40 MG/4 ML VIAL IV SCH ×3 (09:57→16:00)
--- NOTE | 2017-07-11 10:15 | NUR ---
ERECTING ENGINEER: is in room, notified re pt.history, current condition, sedation level, wean failed attempt, VS, I/O, labs, orders with diuresis meds, non-following prop.reaction with short sedation vacation, still pt.needs to be suction q2-3 hrs: said: continue AC mode support and sedation
--- NOTE | 2017-07-11 10:45 | NUR ---
BARREL WATERER: AGRONOMY PROFESSOR is in room, updated with pt.status, sedation, VS, orders, I/O, OGTF, meds, labs, see new orders
[2017-07-11] MEDS: Potassium Phosphate meq 11 MEQ in IV D5W 100 ML IV SCH ×2 (11:13→13:51)
[2017-07-11] MEDS: FIBERSOURCE HN 1,000 ML BOTTLE GT PRN (11:46)
--- NOTE | 2017-07-11 12:00 | NUR ---
RUBBER GOODS FINISHER: pt.was restless, tachypneic, bitting ETT, increased Diprivan gtt up to 70mcg/kg/m (max dose 100mcg/kg/m per report), now pt.is sedated well, rest, RR 16-18, SR, SBP over 100, O2 sat. 94-100%, charge nurse updated, diuresis tolerated well with Lasix.
[2017-07-11] MEDS: CEFTRIAXONE 1 G in IV D5W 50 ML IV SCH (13:32)
[2017-07-11] MEDS: ACETAMINOPHEN 325 MG TABLET PO PRN (16:07)
--- NOTE | 2017-07-11 17:23 | NUR ---
CONSULTANT RN: BP 99/57, hold Hdlz, lasix 40 mg IV x 3 doses were given, pt.is sedated well, rest, continue titrate Diprivan gtt, RR 14-18, SR, O2 sat. WNL, no NGTF residual, PM/skin care done
[2017-07-11] MEDS ORDERED: FUROSEMIDE 40 MG/4 ML VIAL IV SCH (17:30)
--- NOTE | 2017-07-11 18:09 | NUR ---
BIOPHYSICS TEACHER: pt. is sedated well, O2 sat. WNL, SR, SBP over 100 now, suctioned q1-2hrs, pt.sister called/notified re pt.current status, VS, POC, orders
--- NOTE | 2017-07-11 19:00 | NUR ---
BASE FILLER OPERATOR Notes. Received patient orally intubated on the vent on AC mode,well sedated on Propofol drip.With stong cough and gag reflex.PICC line via AMARILIS .OGT with on going feeding tolerating well.Comfort care done ,needs attended. 2129 Family at bedside ,supportive of patient,questions answered.
[2017-07-12] VITALS (48 sets, daily range): BP systolic 16–142; BP diastolic 59–94
--- NOTE | 2017-07-12 | NUR ---
Director Digital Marketing nOtes Status unchanged ,stable on Propofol drip.Continue comfort care.
[2017-07-12] MEDS: PROPOFOL 100 ML IV PRN ×6 (00:49→23:10)
--- NOTE | 2017-07-12 04:00 | NUR ---
Independent Freight Agent Notes Stable.Am, care rendered,tolerated well ,easily gets agitated when turning and moving but remains sedated.Possible weaning trials in am as tolerated.
[2017-07-12] MEDS: IPRATROPIUM NEB FS 0.5 MG/2.5 ML AMPUL.NEB NEB SCH ×6 (04:35→23:57)
[2017-07-12] MEDS: ALBUTEROL HALF STRENGTH 1.25 MG/3 ML VIAL.NEB NEB SCH ×6 (04:35→23:57)
[2017-07-12] MEDS: IV NS 0.9% 250 ML IV PRN (05:06)
[2017-07-12] MEDS: FIBERSOURCE HN 1,000 ML BOTTLE GT PRN (05:11)
--- NOTE | 2017-07-12 07:39 | NUR ---
CASE AIDE RECEIVED PATIENT FROM THE PREVIOUS SHIFT. PATIENT IS IN BED. SEDATED ON DIPRIVAN. ORALLY INTUBATED. VENT SETTINGS REVIEWED AND VERIFIED. ETT AND ORAL ROUTE SUCTIONED FOR CLEARANCE. TURNED AND REPOSITIONED FOR COMFORT AND WOUND PREVENTION.
[2017-07-12] MEDS: ACETYLCYSTEINE 10% SOLN 400 MG/4 ML VIAL NEB SCH ×3 (07:47→23:30)
[2017-07-12 08:28] LABS: CALCIUM, SERUM 9.1 mg/dL (8.5-10.1); POTASSIUM 3.2 mmol/L (3.5-5.1)
[2017-07-12] MEDS: CARVEDILOL 3.125 MG TABLET NG SCH ×2 (09:00→20:30)
[2017-07-12] MEDS: hydrALAZINE HCL 50 MG TABLET PO SCH ×3 (09:10→16:39)
[2017-07-12] MEDS: ASPIRIN 81 MG TAB.CHEW NG SCH (09:13)
[2017-07-12] MEDS: FUROSEMIDE 40 MG/4 ML VIAL IV SCH ×3 (09:13→16:30)
[2017-07-12] MEDS: HEPARIN SODIUM, PORCINE 5000 UNITS/1 ML VIAL SQ SCH ×2 (09:14→20:32)
[2017-07-12] MEDS: NITROGLYCERIN 30 GM TUBE TP SCH ×2 (09:14→20:31)
[2017-07-12] MEDS ORDERED: POTASSIUM CHLORIDE 20 MEQ POWDER PACKET NG ONE ×4 (09:30→12:30)
--- NOTE | 2017-07-12 09:35 | NUR ---
ROAD GRADER DURING 20 MIN OFF SEDATION PATIENT NOTED TO BE SEVERELY RESTLESS, KICKING BOTH LEGS WITHOUT A PURPOSE. TRYING TO PULL ON THE RESTRAINTS. TACHYPNEA AND LOW TIDAL VOLUMES ALSO NOTED. SEDATION RESTARTED FOR SAFETY.
[2017-07-12] MEDS: LORAZEPAM INJ 2 MG/ML VIAL IV PRN (10:59)
[2017-07-12] MEDS: CEFTRIAXONE 1 G in IV D5W 50 ML IV SCH (13:09)
[2017-07-12 14:33] LABS: ABG BASE EXCESS 16.4 mmol/L; ABG OXYGEN SATURATION 96.2 % (92.0-98.5); ABG PCO2 47.3 mmHg (35.0-45.0); ABG PH 7.556 (7.350-7.450); ABG PO2 78.7 mmHg (75.0-100.0); AaDO2 115.9 mmHg; COHb 0.7 % (0.5-1.5); MetHb 0.3 % (0.0-1.5); O2Hb 95.2 % (94.0-97.0); PEEP,BG 5 cm H2O; SITE, ABG Left Radial; VENT MODE, BG AC16 550 35% +5; VT, ABG 550 mL
[2017-07-12] MEDS: NYSTATIN (PYXIS) 500,000 UNIT/5 ML ORAL.SUSP PO SCH ×2 (17:20→20:30)
--- NOTE | 2017-07-12 19:52 | NUR ---
CLOUD SOFTWARE ENGINEER. INITIAL ASSESSMENT. RECEIVED THE PT REST ON THE BED. ORALLY INTUBATED. SEDATED WITH DIPRIVAN. ETT 7.5CM, LIP 24CM, AC 12, TV 500,FIO2 35%, PEEP 5, SAT 98%. NO ACUTE DISTRESS NOTED. OUTSOLE HANDLER SHOWING NSR. IV RT UPPER ARM PICC LINE. DIPRIVAN 50MCG/KG/MIN, OGT INTACT. FIBER SOURCE 55ML/H. FC PATENT. LE SOFT WRIST RESTRAINT CHECKED AND RELEASED. NO INJURY OR REDNESS NOTED.HOB ELEVATED. TURN AND REPOSITION Q2H. WILL CONTINUE TO MONITOR VITALS.
[2017-07-13] VITALS (42 sets, daily range): BP systolic 110–144; BP diastolic 60–106
[2017-07-13] MEDS: FIBERSOURCE HN 1,000 ML BOTTLE GT PRN (00:24)
[2017-07-13] MEDS: NYSTATIN (PYXIS) 500,000 UNIT/5 ML ORAL.SUSP PO SCH ×6 (00:24→20:59)
[2017-07-13] MEDS: IV NS 0.9% 250 ML IV PRN (00:25)
[2017-07-13] MEDS: PROPOFOL 100 ML IV PRN ×3 (01:32→08:28)
--- NOTE | 2017-07-13 02:59 | NUR ---
TOOLING SPECIALIST. AM CARE, ORAL CARE, BED BATH GIVEN. LINEN CHANGED, REMAINING SAME VENT SETTING TOLERATED WELL. SAT 98%. NO ACUTE DISTRESS NOTED. DRILLING FIELD PROFESSIONAL SHOWING NSR. IV RT UPPER ARM PICC LINE. DIPRIVAN 50 MCG/KG/MIN. FC PATENT. URINE DRAINING. LE SOFT WRIST RESTRAINT CHECKED AND RELEASED. NO INJURY OR REDNESS NOTED. OGT FEEDING TOLERATED WELL. TURN AND REPOSITION Q2H. WILL CONTINUE TO MONITOR VITALS.
[2017-07-13] MEDS: IPRATROPIUM NEB FS 0.5 MG/2.5 ML AMPUL.NEB NEB SCH ×6 (04:06→23:32)
[2017-07-13] MEDS: ALBUTEROL HALF STRENGTH 1.25 MG/3 ML VIAL.NEB NEB SCH ×6 (04:06→23:31)
[2017-07-13 04:32] LABS: BASOPHILS % (AUTO) 0.3 % (0.0-2.0); EOSINOPHILS # (AUTO) 0.4 /CMM (0.0-0.7); EOSINOPHILS % (AUTO) 2.8 % (0.0-6.0); HEMATOCRIT 44 % (39-51); HEMOGLOBIN 14.5 g/dL (13.5-17.5); LYMPHOCYTES # (AUTO) 2.7 /CMM (0.8-4.8); LYMPHOCYTES % (AUTO) 21.2 % (20.0-44.0); MEAN CORPUSCULAR HEMOGLOBIN 30 PG (26.0-33.0); MEAN CORPUSCULAR HGB CONC 33 g/dl (31.0-36.0); MEAN CORPUSCULAR VOLUME 89 fL (80-96); MONOCYTES # (AUTO) 0.9 /CMM (0.1-1.30); MONOCYTES % (AUTO) 7.2 % (2.0-12.0); NEUTROPHILS # (AUTO) 8.7 /CMM (1.8-8.9); NEUTROPHILS % (AUTO) 68.5 % (43.0-81.0); PLATELET COUNT (AUTO) 296 /CMM (150-450); RDW COEFFICIENT OF VARIATION 13.2 (11.5-15.0); RED BLOOD CELL COUNT(AUTO) 4.91 MIL/uL (4.5-6.0); WHITE BLOOD COUNT (AUTO) 12.8 K/uL (4.3-11.0)
[2017-07-13 04:50] LABS: ALBUMIN 2.6 g/dL (3.4-5.0); BILIRUBIN,TOTAL 0.3 mg/dL (0.2-1.0); CALCIUM, SERUM 9.6 mg/dL (8.5-10.1); CREATININE 1.1 mg/dL (0.6-1.3); MAGNESIUM 2.1 mg/dL (1.8-2.4); PHOSPHORUS 3.9 mg/dL (2.5-4.9); POTASSIUM 3.7 mmol/L (3.5-5.1)
[2017-07-13] MEDS: ACETYLCYSTEINE 10% SOLN 400 MG/4 ML VIAL NEB SCH ×3 (07:35→23:30)
[2017-07-13] MEDS: PROSOURCE / PROSTAT (PYXIS) 30 ML UDC GT SCH (08:37)
[2017-07-13] MEDS: ASPIRIN 81 MG TAB.CHEW NG SCH (08:37)
[2017-07-13] MEDS: CARVEDILOL 3.125 MG TABLET NG SCH ×2 (08:38→21:00)
[2017-07-13] MEDS: hydrALAZINE HCL 50 MG TABLET PO SCH ×3 (08:38→17:00)
[2017-07-13] MEDS: NITROGLYCERIN 30 GM TUBE TP SCH ×2 (08:38→21:05)
[2017-07-13] MEDS: ENOXAPARIN SODIUM 40 MG/0.4 ML DISP.SYRIN SQ SCH (08:39)
[2017-07-13] MEDS ORDERED: DC PROPOFOL WHEN EXTUBATED XX PRN (09:00)
--- NOTE | 2017-07-13 09:32 | NUR ---
RT PER DR STAUFFER ORDER PATIENT PLACED ON VENT WEANING TRIAL. CPAP 12, +5 PEEP. PATIENT AWAKE, RESPONDING TO VERBAL COMMANDS. NO SOB AT THIS TIME. VENT ALARMS CHECKED + AUDIBLE. AMBU BAG AT HOB Addendum: 07/13/17 at 0934 by GIANNI LOUIS RT Amended: Links added.
[2017-07-13 10:36] LABS: ABG BASE EXCESS 11.6 mmol/L; ABG OXYGEN SATURATION 96.7 % (92.0-98.5); ABG PCO2 43.7 mmHg (35.0-45.0); ABG PO2 82.6 mmHg (75.0-100.0); AaDO2 116.2 mmHg; COHb 0.7 % (0.5-1.5); MetHb 0.5 % (0.0-1.5); O2Hb 95.5 % (94.0-97.0); PEEP,BG 5 cm H2O; SITE, ABG Right Radial; VENT MODE, BG CPAP 12
--- NOTE | 2017-07-13 10:39 | NUR ---
AIRFREIGHT LOADING SUPERVISOR PATIENT EXTUBATED POST BLOOD GAS, PER EVS MANAGER RECOMMENDATION. NO DISTRESS POST EXTUBATION. FAMILY AT BEDSIDE. WILL MONITOR.
[2017-07-13] MEDS: CEFTRIAXONE 1 G in IV D5W 50 ML IV SCH (15:07)
--- NOTE | 2017-07-13 19:38 | NUR ---
PRODUCE MANAGER. INITIAL ASSESSMENT. RECEIVED THE PT REST ON THE BED, AWAKE, ALERT, FOLLOW COMMANDS. HEEL STAINER SHOWING NSR. IV RT UPPER ARM PICC LINE. SALINE LOCK. PT ON ROOM AIR. FC PATENT. URINE DRAINING. TURN AND REPOSITION PT INDEPENDENT. WILL CONTINUE TO MONITOR VITALS.
[2017-07-14] VITALS (19 sets, daily range): BP systolic 114–160; BP diastolic 64–100
[2017-07-14] MEDS: NYSTATIN (PYXIS) 500,000 UNIT/5 ML ORAL.SUSP PO SCH ×6 (00:28→21:04)
--- NOTE | 2017-07-14 03:05 | NUR ---
ELECTRICIAN OFFICE AM CARE, ORAL CARE, BED BATH GIVEN. LINEN CHANGED. PT ON ROOM AIR SAT 98%. NO ACUTE DISTRESS NOTED. FC PATENT. URINE DRAINING. FARM EQUIPMENT MECHANIC SHOWING NSR. IV RT UPPER ARM PICC LINE. SALINE LOCK. WILL CONTINUE TO MONITOR VITALS.
[2017-07-14] MEDS: IPRATROPIUM NEB FS 0.5 MG/2.5 ML AMPUL.NEB NEB SCH ×6 (03:24→23:53)
[2017-07-14] MEDS: ALBUTEROL HALF STRENGTH 1.25 MG/3 ML VIAL.NEB NEB SCH ×6 (03:24→23:53)
[2017-07-14 04:39] LABS: BASOPHILS % (AUTO) 0.1 % (0.0-2.0); EOSINOPHILS # (AUTO) 0.4 /CMM (0.0-0.7); EOSINOPHILS % (AUTO) 2.8 % (0.0-6.0); HEMATOCRIT 46 % (39-51); LYMPHOCYTES # (AUTO) 3.3 /CMM (0.8-4.8); LYMPHOCYTES % (AUTO) 24.4 % (20.0-44.0); MEAN CORPUSCULAR HEMOGLOBIN 29 PG (26.0-33.0); MEAN CORPUSCULAR HGB CONC 33 g/dl (31.0-36.0); MEAN CORPUSCULAR VOLUME 89 fL (80-96); MONOCYTES # (AUTO) 1.2 /CMM (0.1-1.30); MONOCYTES % (AUTO) 8.5 % (2.0-12.0); NEUTROPHILS # (AUTO) 8.7 /CMM (1.8-8.9); NEUTROPHILS % (AUTO) 64.2 % (43.0-81.0); PLATELET COUNT (AUTO) 306 /CMM (150-450); RDW COEFFICIENT OF VARIATION 13.3 (11.5-15.0); RED BLOOD CELL COUNT(AUTO) 5.14 MIL/uL (4.5-6.0); WHITE BLOOD COUNT (AUTO) 13.5 K/uL (4.3-11.0)
[2017-07-14 04:56] LABS: ALBUMIN 2.9 g/dL (3.4-5.0); BILIRUBIN,TOTAL 0.8 mg/dL (0.2-1.0); CALCIUM, SERUM 9.6 mg/dL (8.5-10.1); CREATININE 1.1 mg/dL (0.6-1.3); MAGNESIUM 2.1 mg/dL (1.8-2.4); PHOSPHORUS 2.6 mg/dL (2.5-4.9); POTASSIUM 3.7 mmol/L (3.5-5.1); TOTAL PROTEIN, SERUM 7.3 g/dL (6.4-8.2)
--- NOTE | 2017-07-14 06:22 | NUR ---
EXTENSION WORK DIRECTOR. PT STATE SMOKE SMELL BOTHERING HIM. PT NEED OXYGEN .OXYGEN 3L NASAL CANNULA STARTED., SAT 98%.
[2017-07-14] MEDS: ACETYLCYSTEINE 10% SOLN 400 MG/4 ML VIAL NEB SCH ×3 (07:03→23:53)
--- NOTE | 2017-07-14 07:10 | NUR ---
RN NOTES RECEIVED PATIENT AOX2-3 NOT IN ACUTE DISTRESS , DENIES SOB AND DISCOMFORT AT THIS TIME , SPO2 OF 100% VIA 2LPM NC , SR 78 ON BEDSIDE MONITOR , FC DRAINING VIA GRAVITY WITH CLEAR GREENISH URINE , AMARILIS PICC LINE PATENT AND INTACT HL , ALL NEEDS ATTENDED , BED ON LOW AND LOCKED POSITION , SIDE RAILS X2 ,CALL LIGHT WITHIN REACH , HOB @ 35 , WILL CONTINUE TO MONITOR
--- NOTE | 2017-07-14 08:00 | NUR ---
RN NOTES GALICIA CATHETER DISCONTINUED , PATIENT TOLERATED IT WELL , PATIENT AOX3 , VERBALIZING THAT THE GALICIA CATCHER IS REALLY UNCOMFORTABLE , URINAL AT BEDSIDE, WILL CONTINUE TO MONITOR
--- NOTE | 2017-07-14 08:30 | NUR ---
RN NOTES PATIENT ABLE TO URINATE , NOTED WITH 200ML URINE OUTPUT
[2017-07-14] MEDS: PROSOURCE / PROSTAT (PYXIS) 30 ML UDC GT SCH (09:01)
[2017-07-14] MEDS: hydrALAZINE HCL 50 MG TABLET PO SCH ×3 (09:23→16:10)
[2017-07-14] MEDS: ASPIRIN 81 MG TAB.CHEW NG SCH (09:24)
[2017-07-14] MEDS: ENOXAPARIN SODIUM 40 MG/0.4 ML DISP.SYRIN SQ SCH (09:24)
[2017-07-14] MEDS: CARVEDILOL 3.125 MG TABLET NG SCH ×2 (09:24→21:05)
[2017-07-14] MEDS: NITROGLYCERIN 30 GM TUBE TP SCH ×2 (09:25→21:04)
--- NOTE | 2017-07-14 10:00 | NUR ---
RN NOTES SEEN AND EVALUATED BY DR WALLACE , DISCUSSED LABS , LATEST V/S , PT ON RA SPO2 OF 100% ,AFEBRILE , GALICIA CATHETER DISCONTINUED , PATIENT HAD AN EPISODE OF WATERY STOOL X1 FOLLOWED BY SOFT BROWN STOOL VERIFIED WITH MD IF HE WANTS TO START PT WITH ANTI DIARRHEAL MEDICATION NO NEW ORDERS RECEIVED , ABLE TO AMBULATE WITH ASSIST VERIFIED PT/OT EVAL , PER MD NO PT/OT ,
[2017-07-14] MEDS: CEFTRIAXONE 1 G in IV D5W 50 ML IV SCH (14:03)
--- NOTE | 2017-07-14 18:55 | NUR ---
RN NOTES PT TRANSFERRED TO ROOM 326-1 VIA WHEELCHAIR 9ACLS PROTOCOL) , STABLE AT THIS TIME , SPO2 OF 100% VIA RA , V/S STABLE AFEBRILE , REPORT GIVEN TO NEENA FOR CONTINUITY OF CARE . BELONGING CHECKED .
--- NOTE | 2017-07-14 19:00 | NUR ---
TRIAL CONSULTANT: TRANSFER NOTE RECEIVED PT FROM ICU. ON TELE MONITOR SINUS RHYTHM OF 80. NO DISTRESS NOTED. NO SOB NOTED. VS STABLE. BP 132/72, PULSE 92, RR18, O2 100% ON ROOM AIR. A/OX4. BRP. SKIN INTACT. AMBULATORY. R ARM PICC LINE IN PLACE. DRESSING INTACT. ENDORSED TO [facility] NURSE.
--- NOTE | 2017-07-14 20:00 | NUR ---
Recieved alerrt and orientated. Talkative. In good spirits. In NSR. No SOB noted verbalizes his needs
[2017-07-15] MEDS: NYSTATIN (PYXIS) 500,000 UNIT/5 ML ORAL.SUSP PO SCH ×4 (00:50→13:19)
[2017-07-15 00:57] VITALS: BP 141/76
[2017-07-15] MEDS: ALBUTEROL HALF STRENGTH 1.25 MG/3 ML VIAL.NEB NEB SCH ×3 (03:06→12:00)
[2017-07-15] MEDS: IPRATROPIUM NEB FS 0.5 MG/2.5 ML AMPUL.NEB NEB SCH ×3 (03:06→12:00)
--- NOTE | 2017-07-15 05:01 | NUR ---
Mr. Talavera remains alert and orientated X4. He is friendly and enjoys lengthy conversations. 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 He ambulates in the corridor, speaking of going home today. He shows no s/s of SOB with ADLs. States he had a BM last night. Noted his gait steady
[2017-07-15 07:01] LABS: BASOPHILS % (AUTO) 0.3 % (0.0-2.0); EOSINOPHILS # (AUTO) 0.5 /CMM (0.0-0.7); EOSINOPHILS % (AUTO) 3.6 % (0.0-6.0); HEMATOCRIT 46 % (39-51); HEMOGLOBIN 15.3 g/dL (13.5-17.5); LYMPHOCYTES # (AUTO) 2.8 /CMM (0.8-4.8); LYMPHOCYTES % (AUTO) 20.3 % (20.0-44.0); MEAN CORPUSCULAR HEMOGLOBIN 30 PG (26.0-33.0); MEAN CORPUSCULAR HGB CONC 34 g/dl (31.0-36.0); MEAN CORPUSCULAR VOLUME 89 fL (80-96); MONOCYTES # (AUTO) 1.1 /CMM (0.1-1.30); MONOCYTES % (AUTO) 7.6 % (2.0-12.0); NEUTROPHILS # (AUTO) 9.6 /CMM (1.8-8.9); NEUTROPHILS % (AUTO) 68.2 % (43.0-81.0); PLATELET COUNT (AUTO) 302 /CMM (150-450); RDW COEFFICIENT OF VARIATION 13.6 (11.5-15.0); RED BLOOD CELL COUNT(AUTO) 5.11 MIL/uL (4.5-6.0)
[2017-07-15 07:18] LABS: CALCIUM, SERUM 9.4 mg/dL (8.5-10.1); MAGNESIUM 2.2 mg/dL (1.8-2.4); PHOSPHORUS 3.2 mg/dL (2.5-4.9); POTASSIUM 2.9 mmol/L (3.5-5.1)
--- NOTE | 2017-07-15 08:00 | NUR ---
PULPWOOD BUYER AM NOTES RECEIVED PATIENT AOX2-3 NOT IN ACUTE DISTRESS , DENIES SOB AND DISCOMFORT AT THIS TIME , SPO2 OF 100% VIA 2LPM NC , SR 78 ON BEDSIDE MONITOR , WITH BRP.AMARILIS PICC LINE PATENT AND INTACT HL , NEEDS ATTENDED , BED ON LOW AND LOCKED POSITION , SIDE RAILS X2 ,CALL LIGHT WITHIN REACH ,WILL CONTINUE TO MONITOR
[2017-07-15] MEDS: ACETYLCYSTEINE 10% SOLN 400 MG/4 ML VIAL NEB SCH (08:09)
[2017-07-15] MEDS: PROSOURCE / PROSTAT (PYXIS) 30 ML UDC GT SCH (09:03)
[2017-07-15] MEDS: ASPIRIN 81 MG TAB.CHEW NG SCH (09:04)
[2017-07-15] MEDS: hydrALAZINE HCL 50 MG TABLET PO SCH ×2 (09:05→13:19)
[2017-07-15] MEDS: CARVEDILOL 3.125 MG TABLET NG SCH (09:05)
[2017-07-15] MEDS: ENOXAPARIN SODIUM 40 MG/0.4 ML DISP.SYRIN SQ SCH (09:06)
[2017-07-15] MEDS: NITROGLYCERIN 30 GM TUBE TP SCH (09:18)
[2017-07-15 12:41] LABS: ABG BASE EXCESS 0.2 mmol/L; ABG OXYGEN SATURATION 96.5 % (92.0-98.5); ABG PCO2 28.7 mmHg (35.0-45.0); ABG PO2 81.1 mmHg (75.0-100.0); AaDO2 34.3 mmHg; COHb 1.3 % (0.5-1.5); MetHb 0.5 % (0.0-1.5); O2Hb 94.8 % (94.0-97.0); SITE, ABG Left Radial; VENT MODE, BG room air
[2017-07-15 13:19] VITALS: BP 118/64
[2017-07-15] MEDS: CEFTRIAXONE 1 G in IV D5W 50 ML IV SCH (14:00)
[2017-07-15] MEDS ORDERED: POTASSIUM CHLORIDE 20 MEQ TAB.PRT.SR PO SCH (15:00)
--- NOTE | 2017-07-15 15:13 | NUR ---
PT'S ROCEPHIN IV ATB WAS OVERDUE AND NOTIFIED THE PHARMACIST,HOLLIS WHO STATED THAT ROCEPHIN HAS BEEN DC'D BY DR RODRIGO CAMARGO.
--- NOTE | 2017-07-15 16:20 | NUR ---
DISCHARGED PT HOME WITH STABLE V/S ACCOMPANIED BY HIS FRIEND HOME.DENIES PAIN OR DISTRESS.AMARILIS PICC LINE REMOVED WITH NO BLEEDING NOTED AND PT TOLERATED WELL.CALLED PT'S SON,MALOU AND MADE AWARE.
== END 2017-07-15 16:30 | disposition home or self-care (01) | DRG 207 ==
LOC: ER 12:03 → ICU 14:59 → TELE 07-14 18:37 → MED 07-15 11:35
PROVIDERS: ADMIT Family Medicine; ATTEND Family Medicine
PROC: 5A1955Z Respiratory Ventilation, Greater than 96 Consecutive Hours (ICD-10-PCS; principal; 2017-07-07)
PROC: 0BH17EZ Insertion of Endotracheal Airway into Trachea, Via Natural or Artificial Opening (ICD-10-PCS; 2017-07-07)
PROC: 5A09357 Assistance with Respiratory Ventilation, Less than 24 Consecutive Hours, Continuous Positive Airway Pressure (ICD-10-PCS; 2017-07-07)
PROC: 02HV33Z Insertion of Infusion Device into Superior Vena Cava, Percutaneous Approach (ICD-10-PCS; 2017-07-08)
DX: J96.01 Acute respiratory failure with hypoxia (principal); I21.4 Non-ST elevation (NSTEMI) myocardial infarction; G92 Toxic encephalopathy; N17.9 Acute kidney failure, unspecified; J18.9 Pneumonia, unspecified organism; J90 Pleural effusion, not elsewhere classified; E87.0 Hyperosmolality and hypernatremia; J44.0 Chronic obstructive pulmonary disease with (acute) lower respiratory infection; E87.2 Acidosis; I13.11 Hypertensive heart and chronic kidney disease without heart failure, with stage 5 chronic kidney disease, or end stage renal disease; J44.1 Chronic obstructive pulmonary disease with (acute) exacerbation; M62.82 Rhabdomyolysis; N39.0 Urinary tract infection, site not specified; J98.11 Atelectasis; N18.5 Chronic kidney disease, stage 5; J96.02 Acute respiratory failure with hypercapnia; E86.0 Dehydration; F43.10 Post-traumatic stress disorder, unspecified; F12.10 Cannabis abuse, uncomplicated; F17.200 Nicotine dependence, unspecified, uncomplicated; E87.5 Hyperkalemia; R73.9 Hyperglycemia, unspecified; G89.29 Other chronic pain; E87.70 Fluid overload, unspecified; I95.9 Hypotension, unspecified
CPT/HCPCS: 31720; 36415; 36569; 36600; 70450-TC; 71010-TC; 76770-TC; 80048-TC; 80053-TC; 80061-TC; 80076-TC; 80305; 81000-TC; 82140-TC; 82550-TC; 82553-TC; 82570-TC; 82803-TC; 82962-TC; 83605-TC; 83735-TC; 84100-TC; 84300-TC; 84484-TC; 85025-TC; 85610-TC; 85730-TC; 87040-TC; 87070-TC; 87081-TC; 87086-TC; 87400; 94002-TC; 94003-TC; 94762-TC; 94799-TC; A4216; C1751; C1769; G0480; J0696; J1642; J1644; J1650; J1940; J1956; J2060; J2250; J3010; J3490; J7030; J7040; J7050; J7060; Z7610